=== PATIENT | female | born 1980 ===

== ENCOUNTER 2017-10-13 14:49 | Emergency (ER) | payer SELFPAY ==
[2017-10-13 14:58] VITALS: BP 134/77; PULSE 71; RESP 16; TEMP 97.5; O2SAT 99
--- NOTE | 2017-10-13 17:03 | ED PDOC ---
HPI: CCC, URI, Sore Throat Time Seen by Provider: 10/13/17 15:14 Chief Complaint (Nursing): Cough, Cold, Congestion Chief Complaint (Provider): Throat pain, headache History Per: Patient History/Exam Limitations: no limitations Have you had recent travel within the past 21 days to any of the following countries: [place], [place], [place] or [place]?: No Onset/Duration Of Symptoms: Days (5) Current Symptoms Are (Timing): Still Present Location Of Pain: Throat, Diffuse Myalgias, Headache Sick Contacts (Context): None Associated Symptoms: Fever, Sore Throat, Cough, Myalgias. denies: Sputum Additional Complaint(s): 37yo female, presents with complaints of throat pain, headache, dry cough and bodyaches present for the past 5 days. Patient reports a fever, with Tmax of 100 degrees at home. She denies any known sick contacts. Patient states she hasnt eaten anything today due to her throat pain. No other complaints. Past Medical History Reviewed: Historical Data, Nursing Documentation, Vital Signs Vital Signs: Last Vital Signs Temp 97.5 F L 10/13/17 14:55 Pulse 71 10/13/17 14:55 Resp 16 10/13/17 14:55 BP 134/77 10/13/17 14:55 Pulse Ox 99 10/13/17 17:14 - Medical History PMH: No Chronic Diseases - Surgical History Surgical History: No Surg Hx - Family History Family History: States: No Known Family Hx - Living Arrangements Living Arrangements: With Family - Home Medications Home Medications: Ambulatory Orders Medication Instructions Recorded Ibuprofen [Motrin] 600 mg PO Q6 PRN #20 tab 09/07/14 Ondansetron Hydrochloride 4 mg PO Q6 PRN #12 tab 09/07/14 Benzonatate [Tessalon Perles] 100 mg PO BID #20 sgl 10/13/17 Dextromethorphan Polistirex 30 mg PO BID #100 bill.er.12h 10/13/17 [Delsym] Mag&Al/Simet/Diphen/Lido [First 30 ml MM DAILY #1 kit 10/13/17 Magic Mouthwash] - Allergies Allergies/Adverse Reactions: Allergies Allergy/AdvReac Type Severity Reaction Status Date / Time No Known Allergies Allergy Verified 09/07/14 08:44 Review of Systems ROS Statement: Except As Marked, All Systems Reviewed And Found Negative Constitutional: Positive for: Fever, Malaise ENT: Positive for: Nose Congestion, Throat Pain Respiratory: Positive for: Cough. Negative for: Sputum Physical Exam - Reviewed Nursing Documentation Reviewed: Yes Vital Signs Reviewed: Yes - Physical Exam Appears: Positive for: Non-toxic, No Acute Distress Head Exam: Positive for: ATRAUMATIC, NORMAL INSPECTION, NORMOCEPHALIC Skin: Positive for: Normal Color, Warm Eye Exam: Positive for: Normal appearance ENT: Positive for: TM Is/Are (normal), Pharyngeal Erythema. Negative for: Tonsillar Exudate, Tonsillar Swelling Neck: Positive for: Supple Cardiovascular/Chest: Positive for: Regular Rate, Rhythm Respiratory: Positive for: Normal Breath Sounds. Negative for: Respiratory Distress Lymphatic: Positive for: Adenopathy (mild submandibular adenopathy bilaterally) Neurologic/Psych: Positive for: Alert, Oriented - ECG O2 Sat by Pulse Oximetry: 99 (RA) Pulse Ox Interpretation: Normal Medical Decision Making Medical Decision Making: Time: 1615 Impression: URI, r/o strep Plan: -- Rapid strep -- Throat culture Reassess Time: 1713 Rapid strep negative. Patient informed of results and instructed to f/u with PCP in 1-2 days. Stable for discharge home. Scribe Attestation: Documented by Terri Calix acting as a scribe for GRISELDA Espitia Provider Attestation: All medical record entries made by the Scribe were at my direction and personally dictated by me. I have reviewed the chart and agree that the record accurately reflects my personal performance of the history, physical exam, medical decision making, and the department course for this patient. I have also personally directed, reviewed, and agree with the discharge instructions and disposition. Disposition - Clinical Impression Clinical Impression: Pharyngitis - Disposition Referrals: [facility] [Outside] [facility] [Outside] Disposition: Routine/Home Disposition Time: 17:14 Condition: STABLE Prescriptions: Benzonatate [Tessalon Perles] 100 mg PO BID #20 sgl Dextromethorphan Polistirex [Delsym] 30 mg PO BID #100 bill.er.12h Mag&Al/Simet/Diphen/Lido [First Magic Mouthwash] 30 ml MM DAILY #1 kit Instructions: Pharyngitis (ED) Forms: [facility] (Bhutanese) Print Language: FRISIAN
== END 2017-10-13 18:44 | disposition home or self-care (01) ==
LOC: H.ER 14:49
DX: J02.9 Acute pharyngitis, unspecified (principal)

== ENCOUNTER 2019-02-25 14:17 | Emergency (ER) | payer SELFPAY ==
[2019-02-25 15:00] VITALS: BP 130/82; PULSE 73; RESP 16; TEMP 98.6; O2SAT 99
--- NOTE | 2019-02-25 16:07 | ED PDOC ---
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 She notes the pain radiates down into her buttocks, but not down her legs. Last medication taken was Tylenol and Advil around 11am and 8am today respectively. Otherwise, denies numbness, tingling, incontinence, urinary symptoms, IV drug use, and malignancy. PMD: [facility] Past Medical History Reviewed: Historical Data, Nursing Documentation, Vital Signs Vital Signs: Last Vital Signs Temp 98.6 F 02/25/19 14:55 Pulse 73 02/25/19 14:55 Resp 16 02/25/19 14:55 BP 130/82 02/25/19 14:55 Pulse Ox 99 02/25/19 14:55 - Medical History PMH: No Chronic Diseases - Surgical History Surgical History: (x1) - Family History Family History: States: Unknown Family Hx - Social History Current smoker - smoking cessation education provided: No Alcohol: None Drugs: Denies - Home Medications Home Medications: Ambulatory Orders Medication Instructions Recorded Ibuprofen [Motrin] 600 mg PO Q6 PRN #20 tab 09/07/14 Ondansetron Hydrochloride 4 mg PO Q6 PRN #12 tab 09/07/14 Benzonatate [Tessalon Perles] 100 mg PO BID #20 sgl 10/13/17 Dextromethorphan Polistirex 30 mg PO BID #100 bill.er.12h 10/13/17 [Delsym] Mag&Al/Simet/Diphen/Lido [First 30 ml MM DAILY #1 kit 10/13/17 Magic Mouthwash] Cyclobenzaprine [Cyclobenzaprine 10 mg PO TID PRN #12 tab 02/25/19 HCl] Naproxen 500 mg PO BID PRN #20 tab 02/25/19 - Allergies Allergies/Adverse Reactions: Allergies Allergy/AdvReac Type Severity Reaction Status Date / Time No Known Allergies Allergy Verified 02/25/19 14:55 Review of Systems ROS Statement: Except As Marked, All Systems Reviewed And Found Negative Genitourinary Female: Negative for: Dysuria, Frequency, Incontinence, Hematuria Musculoskeletal: Positive for: Back Pain (left lower radiating into buttocks, but not legs) Neurological: Negative for: Numbness (or tingling) Physical Exam - Reviewed Nursing Documentation Reviewed: Yes Vital Signs Reviewed: Yes - Physical Exam Comments: GENERAL APPEARANCE: Patient is awake, alert, oriented x 3, in no acute distress. SKIN: Warm, dry; (-) cyanosis. EYES: (-) conjunctival pallor. ENMT: Mucous membranes moist. NECK: (-) tenderness, (-) stiffness, (-) lymphadenopathy. CHEST AND RESPIRATORY: (-) rales, (-) rhonchi, (-) wheezes; breath sounds equal bilaterally. HEART AND CARDIOVASCULAR: (-) irregularity; (-) murmur, (-) gallop. ABDOMEN AND GI: Soft; (-) tenderness; (-) palpable mass. BACK: (+) mild midline tenderness to L4-L5, (+) left lumbar muscle tenderness into left gluteal jayla, (-) deformity. full ROM of back but with obvious pain. Straight leg raising (-) bilaterally. (-)saddle anesthesia EXTREMITIES: (-) deformity. Distal pulses good bilaterally. NEURO AND PSYCH: Mental status as above. purchase request editor: intact. Intact sensation bilaterally; normal strength in extension of the knees, plantar and dorsiflexion of the toes. Upper/lower bilateral extremity strength equal and 5/5 - ECG O2 Sat by Pulse Oximetry: 99 (RA) Pulse Ox Interpretation: Normal Medical Decision Making Medical Decision Making: Time: 152 Initial Impression: lower back pain Initial Plan: --U-preg --Lumbar spine XR --Flexeril 10mg PO/ Toradol 30mg IM (patient not driving home) 1720 Upon reevaluation, patient reports improvement in pain. Moving and walking with steady gait and no reported pain XR reviewed by myself as no acute fracture, dislocation, or DJD. Patient advised this is a preliminary read, and if there are any discrepancies with the official read she will be notified within 24 hours. Stable for d/c home and patient verbalized understanding of return parameters. Discussed results, diagnosis, treatment, return precautions and f/u with pt who is understanding, in agreement and stable for dc Scribe Attestation: Documented by Isabela Mccarthy, acting as a scribe for Nilo Smith PA-C. Provider Scribe Attestation: All medical record entries made by the Scribe were at my direction and personally dictated by me. I have reviewed the chart and agree that the record accurately reflects my personal performance of the history, physical exam, medical decision making, and the department course for this patient. I have also personally directed, reviewed, and agree with the discharge instructions and disposition. Disposition - Clinical Impression Clinical Impression: Low back pain, Back strain, Muscle spasm - Patient ED Disposition Is Patient to be Admitted: No Counseled Patient/Family Regarding: Studies Performed, Diagnosis, Need For Followup, Rx Given - Disposition Referrals: [facility] [Outside] [facility] [Outside] Disposition Time: 17:26 Condition: IMPROVED Additional Instructions: Return to ED for new or worsening symptoms, fever >100.4, numbness or tingling, urinary or bowel incontinence, unable to walk. Follow up with your primary doctor or orthopedist in 2-3 days. Take medications as prescribed. Do not drive or drink alcohol when taking flexeril. Rest, avoid heavy lifting or strenuous activity for one week. Use heating pads and hot showers to help soothe muscles Regrese a la ED para sntomas nuevos o que empeoran, fiebre> 100.4, entumecimiento u hormigueo, incontinencia urinaria o intestinal, incapaz de elizabeth vika. Christine un seguimiento con amanda mdico de cabecera u ortopedista en 2-3 andrade. [place] los medicamentos segn lo prescrito. No conduzca ni marlen alcohol cuando est tomando flexeril. Descanse, evite levantar objetos pesados ??o realizar actividades extenuantes scott ernesto semana. Use almohadillas trmicas y duchas de tanacross para ayudar a calmar los msculos. Prescriptions: Cyclobenzaprine [Cyclobenzaprine HCl] 10 mg PO TID PRN #12 tab PRN Reason: Muscle Spasm Naproxen 500 mg PO BID PRN #20 tab PRN Reason: Pain, Moderate (4-7) Instructions: Muscle Strain, Low Back Pain (DC), Muscle Spasms (DC) Forms: [employer] (Turkish), [facility] ED School/Work Excuse Print Language: INDONESIAN - POA Present On Arrival: None Results - Diagnostic Imaging Results Radiology Results Lumbar Spine X-Ray 02/25/19 15:24 IMPRESSION: No focal consolidation.
--- NOTE | 2019-02-25 17:27 | RAD ---
Date of service: 02/25/2019 PROCEDURE: Radiographs of the Lumbar Spine. HISTORY: low back pain COMPARISON: None available. FINDINGS: BONES: Alignment appears satisfactory. No listhesis. No acute displaced fracture identified. DISC SPACES: Unremarkable. OTHER FINDINGS: None. IMPRESSION: No focal consolidation.
== END 2019-02-25 17:41 | disposition home or self-care (01) ==
LOC: H.ER 14:17
DX: S39.012A Strain of muscle, fascia and tendon of lower back, initial encounter (principal); X50.9XXA Other and unspecified overexertion or strenuous movements or postures, initial encounter; Y99.0 Civilian activity done for income or pay
CPT/HCPCS: 72100; 81025; 96372; 99283; J1885